=== PATIENT | male | born 1990 | race Asian ===

== ENCOUNTER 2020-10-08 02:14 | Emergency (ER) | payer SELFPAY ==
[~2020-10-08] VITALS: Ht 175.3 cm; Wt 72.6 kg
[2020-10-08 02:15] VITALS: BP_SYST 118
[2020-10-08] MEDS ORDERED: IBUP-1969 PO (02:57)
[2020-10-08] MEDS ORDERED: IBUPROFEN 600 MG TABLET PO ONE (03:00)
[2020-10-08 03:05] VITALS: BP_SYST 118
[2020-10-08] MEDS ORDERED: IBUPROFEN 600 MG TABLET ONE (03:05)
== END 2020-10-08 03:05 | disposition home or self-care (01) ==
LOC: SED 02:14
DX: M79.18 Myalgia, other site (principal); R53.81 Other malaise; T50.B95A Adverse effect of other viral vaccines, initial encounter; Y92.89 Other specified places as the place of occurrence of the external cause
CPT/HCPCS: 99283